=== PATIENT | male | born 1955 | race Caucasian/White ===

== ENCOUNTER 2019-01-17 08:00 | Day surgery (SDC) | payer BC ==
[2019-01-16 10:30] VITALS: BMI 26.7
[~2019-01-17 08:00] MED LIST: LACTATED RINGERS 1,000 ML IV SCH; LIDOCAINE 1% 20 ML VIAL (10MG/ML) FOR IV START INTRADERMA PRN
[2019-01-17 08:25] VITALS: TEMP 97.7
[2019-01-17 08:46] LABS: Glucose,Whole Blood 149 mg/dL (75-99)
[2019-01-17] MEDS ORDERED: LIDOCAINE 1% INJ 10MG/ML (20 ML MDV) ONE (08:46)
[2019-01-17] MEDS ORDERED: PROPOFOL 10 MG/ML 20 ML VIAL IV ONE (08:46)
--- NOTE | 2019-01-17 08:56 | P.PCN ---
Date of Procedure: 01/17/19 Procedure(s) Performed: BRIEF HISTORY: Patient is a 63-year-old, pleasant, white male, scheduled for an upper endoscopy as a part of evaluation of long-standing history of GERD of almost 25 years duration. His been on omeprazole 20 mg daily and doing well. Occasionally has heartburn and intermittent dysphagia to solids.. PROCEDURE PERFORMED: Esophagogastroduodenoscopy with biopsy. PREOPERATIVE DIAGNOSIS: Long-standing history of GERD/intermittent dysphagia to solids. IV sedation per anesthesia. PROCEDURE: After informed consent was obtained, the patient was brought into the endoscopy unit. IV sedation was administered by Anesthesia under continuous monitoring. Initially the Olympus GIF-140 video endoscope was inserted into the mouth. Esophagus intubated without any difficulty. It was gradually advanced into the stomach and duodenum and carefully examined. The bulb and the second part of the duodenum appeared normal. The scope at this time was withdrawn to the stomach, adequately insufflated with air, and upon careful examination, mucosa of the antrum, had mild gastritis and biopsies were done from this area. The body, cardia and the fundus appeared normal. The scope was then withdrawn into the esophagus. The GE junction was located at 39 cm from the incisors. Small sliding type hiatal hernia noted. The esophagus appeared normal. There were no erosions or ulcerations seen and the patient tolerated the procedure well. IMPRESSION: 1. Mild antral gastritis. 2. Small sliding type hiatal hernia with no evidence of esophagitis or Mederios's esophagus. RECOMMENDATIONS: The findings of this examination were discussed with the patient as well as his family. He was advised to follow with the biopsy result. He will continue with omeprazole 20 mg every other day and follow antireflux measures..
[2019-01-17 09:05] VITALS: RESP 18
[2019-01-17 09:17] VITALS: BP 121/74; PULSE 70
== END 2019-01-17 09:36 | disposition home or self-care (01) ==
LOC: ORWHC2ENDO 08:00
PROVIDERS: ATTEND Internal Medicine Gastroenterology
DX: K29.50 Unspecified chronic gastritis without bleeding (principal); K44.9 Diaphragmatic hernia without obstruction or gangrene; K21.9 Gastro-esophageal reflux disease without esophagitis; I10 Essential (primary) hypertension; E78.5 Hyperlipidemia, unspecified; G47.33 Obstructive sleep apnea (adult) (pediatric); E11.9 Type 2 diabetes mellitus without complications; M19.90 Unspecified osteoarthritis, unspecified site; Z88.8 Allergy status to other drugs, medicaments and biological substances; Z79.4 Long term (current) use of insulin; Z79.82 Long term (current) use of aspirin; Z79.899 Other long term (current) drug therapy; Z98.890 Other specified postprocedural states
CPT/HCPCS: 88305; 43239; J2001; J2704

== ENCOUNTER → 2020-02-19 | Outpatient (CLI) | payer BC ==
--- NOTE | 2020-02-19 14:42 | US ---
EXAMINATION TYPE: US abdomen complete DATE OF EXAM: 02/19/2020 COMPARISON: US 2016 CLINICAL HISTORY: 64-year-old male R10.12 LUQ ABD PAIN. Intermittent LUQ discomfort TECHNIQUE: Multiple sonographic images of the abdomen are obtained. FINDINGS: EXAM MEASUREMENTS: Liver Length: 18.5 cm Gallbladder Wall: 0.2 cm CBD: 0.4 cm Spleen: 14.5 cm Right Kidney: 10.2 x 4.4 x 4.6 cm Left Kidney: 11.0 x 5.4 x 5.7 cm Pancreas: visualized portions wnl, pancreatic tail limited by overlying midline bowel gas Liver: enlarged, mildly echogenic. No focal lesion seen. Gallbladder: wnl Evidence for sonographic Porras's sign: no CBD: visualized portions wnl, limited by overlying bowel gas Spleen: Mildly enlarged. Kidneys: No hydronephrosis. Upper IVC: wnl Abd Aorta: wnl IMPRESSION: 1. Mild hepatomegaly (18.5 cm). Suspect underlying mild steatosis. 2. Mild splenomegaly at 14.5 cm. Clinically correlate.
== END | disposition home or self-care (01) ==
LOC: RADUSWWP 08:19
PROVIDERS: ATTEND Internal Medicine
DX: R16.2 Hepatomegaly with splenomegaly, not elsewhere classified (principal)
CPT/HCPCS: 76700

== ENCOUNTER → 2021-01-09 | Outpatient (CLI) | payer MEDICARE ==
[2021-01-09 15:28] LABS: Basophils # (A) 0.02 X 10*3/uL (0.00-0.10); Basophils % (A) 0.4 %; Eosinophils # (A) 0.12 X 10*3/uL (0.04-0.35); Eosinophils % (A) 2.3 %; HGB 14.1 g/dL (13.0-17.0); Lymphocytes # (A) 1.44 X 10*3/uL (0.90-5.00); Lymphocytes % (A) 27.9 %; MCH 28.7 pg (27.0-32.0); MCV 89.6 fL (80.0-97.0); Mean Platelet Volume 11.1 fL (9.5-12.2); Monocytes # (A) 0.32 X 10*3/uL (0.20-1.00); Monocytes % (A) 6.2 %; Neutrophils # (A) 3.26 X 10*3/uL (1.80-7.70); Platelet Count 252 X 10*3/uL (140-440); RBC 4.91 X 10*6/uL (4.40-5.60); RDW 12.6 % (11.5-14.5); WBC 5.17 X 10*3/uL (4.50-10.00)
[2021-01-09 20:22] LABS: Ceruloplasmin 19.7 mg/dL (20.0-60.0)
[2021-01-09 21:00] LABS: % Iron Saturation 18.39 (15.00-50.00); ALT 16 U/L (10-49); AST 19 U/L (14-35); African American GFR (CKD) 91.9 (60.0-200.0); Albumin 4.4 g/dL (3.8-4.9); Albumin/Globulin Ratio 2.36 (1.60-3.17); Alkaline Phosphatase 79 U/L (41-126); Bilirubin, Conjugated <0.20 mg/dL (0.20-0.40); Blood Urea Nitrogen 14.2 mg/dL (9.0-27.0); Calcium 9.9 mg/dL (8.7-10.3); Carbon Dioxide 24.8 mmol/L (21.6-31.8); Chloride 103 mmol/L (96-109); Globulin 1.9 g/dL (1.6-3.3); Glucose 135 mg/dL (70-110); Iron 50 ug/dL (65-175); LDH 129 U/L (120-246); Magnesium 1.8 mg/dL (1.5-2.4); Non-African American GFR(CKD) 79.3 (60.0-200.0); Potassium 4.5 mmol/L (3.5-5.5); Sodium 140 mmol/L (135-145); Total Iron Binding Capacity 270 ug/dL (228-460); Total Protein 6.2 g/dL (6.2-8.2)
[2021-01-09 23:24] LABS: Alpha Fetoprotein, Tumor Mkr <1.82 ng/mL (0.00-7.90)
[2021-01-10 06:10] LABS: Microalbumin Creatinine Ratio <30 mg/g Creat (0-30)
== END | disposition home or self-care (01) ==
LOC: LABWHC1 10:42
PROVIDERS: ATTEND Internal Medicine
DX: E11.40 Type 2 diabetes mellitus with diabetic neuropathy, unspecified (principal); I10 Essential (primary) hypertension; E78.2 Mixed hyperlipidemia; R16.0 Hepatomegaly, not elsewhere classified
CPT/HCPCS: 36415; 80053; 82043; 82105; 82248; 82390; 82570; 82728; 83516; 83540; 83550; 83615; 83735; 84439; 84443; 85025; 86376

== ENCOUNTER → 2021-04-17 | Outpatient (CLI) | payer MEDICARE | END | disposition home or self-care (01) | LOC: LABWHC1 13:18 | PROVIDERS: ATTEND Nurse Practitioner Family | DX: R16.2 Hepatomegaly with splenomegaly, not elsewhere classified (principal) | CPT/HCPCS: 36415 ==

== ENCOUNTER → 2021-09-22 | Outpatient (CLI) | payer MEDICARE ==
[2021-09-22 14:33] LABS: Basophils # (A) 0.03 X 10*3/uL (0.00-0.10); Basophils % (A) 0.6 %; Eosinophils # (A) 0.16 X 10*3/uL (0.04-0.35); HCT 43.1 % (39.6-50.0); Immature Grans, Automated 0.2 %; Lymphocytes # (A) 1.66 X 10*3/uL (0.90-5.00); MCH 28.3 pg (27.0-32.0); MCHC 32.5 g/dL (32.0-37.0); MCV 87.2 fL (80.0-97.0); Mean Platelet Volume 10.2 fL (9.5-12.2); Monocytes # (A) 0.34 X 10*3/uL (0.20-1.00); Monocytes % (A) 6.4 %; NRBC Per 100 WBC 0 /100 WBCS (0.0-0.0); Neutrophils # (A) 3.15 X 10*3/uL (1.80-7.70); Neutrophils % (A) 58.8 %; Platelet Count 285 X 10*3/uL (140-440); RBC 4.94 X 10*6/uL (4.40-5.60); RDW 12.6 % (11.5-14.5); WBC 5.35 X 10*3/uL (4.50-10.00)
[2021-09-22 15:41] LABS: African American GFR (CKD) 91.1 (60.0-200.0); Albumin 4.3 g/dL (3.8-4.9); Albumin/Globulin Ratio 2.28 (1.60-3.17); Anion Gap 11.2 mmol/L (10.00-18.00); BUN/Creat Ratio 12.8 Ratio (12.00-20.00); Blood Urea Nitrogen 12.8 mg/dL (9.0-27.0); Calcium 9.4 mg/dL (8.7-10.3); Carbon Dioxide 26.4 mmol/L (20.0-27.5); Globulin 1.9 g/dL (1.6-3.3); Non-African American GFR(CKD) 78.6 (60.0-200.0); Potassium 4.6 mmol/L (3.5-5.5); Total Bilirubin 0.5 mg/dL (0.30-1.20); Total Protein 6.2 g/dL (6.2-8.2)
== END | disposition home or self-care (01) ==
LOC: LABWHC1 10:51
PROVIDERS: ATTEND Internal Medicine Gastroenterology
DX: R16.2 Hepatomegaly with splenomegaly, not elsewhere classified (principal)
CPT/HCPCS: 36415; 80053; 85025

== ENCOUNTER → 2022-03-16 | Outpatient (CLI) | payer MEDICARE ==
[2022-03-16 18:08] LABS: Basophils # (A) 0.03 X 10*3/uL (0.00-0.10); Basophils % (A) 0.6 %; Eosinophils # (A) 0.17 X 10*3/uL (0.04-0.35); Eosinophils % (A) 3.3 %; HCT 44.3 % (39.6-50.0); HGB 14.4 g/dL (13.0-17.0); Immature Grans, Automated 0.6 %; Lymphocytes # (A) 1.71 X 10*3/uL (0.90-5.00); Lymphocytes % (A) 32.7 %; MCH 28.3 pg (27.0-32.0); MCHC 32.5 g/dL (32.0-37.0); MCV 87.2 fL (80.0-97.0); Monocytes # (A) 0.28 X 10*3/uL (0.20-1.00); Monocytes % (A) 5.4 %; NRBC Per 100 WBC 0 /100 WBCS (0.0-0.0); Neutrophils # (A) 3.01 X 10*3/uL (1.80-7.70); Neutrophils % (A) 57.4 %; Platelet Count 232 X 10*3/uL (140-440); RBC 5.08 X 10*6/uL (4.40-5.60); RDW 13.2 % (11.5-14.5); WBC 5.23 X 10*3/uL (4.50-10.00)
[2022-03-16 18:51] LABS: African American GFR (CKD) 85.3 (60.0-200.0); Albumin 4.3 g/dL (3.8-4.9); Albumin/Globulin Ratio 2.49 (1.60-3.17); Anion Gap 8.4 mmol/L (10.00-18.00); BUN/Creat Ratio 11.71 Ratio (12.00-20.00); Blood Urea Nitrogen 12.3 mg/dL (9.0-27.0); Calcium 9.6 mg/dL (8.7-10.3); Carbon Dioxide 27.9 mmol/L (20.0-27.5); Globulin 1.7 g/dL (1.6-3.3); Non-African American GFR(CKD) 73.6 (60.0-200.0); Potassium 4.3 mmol/L (3.5-5.5); Total Bilirubin 0.3 mg/dL (0.30-1.20); Total Protein 6.1 g/dL (6.2-8.2)
== END | disposition home or self-care (01) ==
LOC: LABWHC1 11:07
PROVIDERS: ATTEND Nurse Practitioner Family
DX: R16.2 Hepatomegaly with splenomegaly, not elsewhere classified (principal)
CPT/HCPCS: 36415; 80053; 85025

== ENCOUNTER → 2022-07-08 | Outpatient (CLI) | payer MEDICARE ==
--- NOTE | 2022-07-11 09:14 | MR ---
EXAMINATION TYPE: MR knee LT wo con DATE OF EXAM: 07/08/2022 COMPARISON: Outside right knee x-ray June 23, 2022 HISTORY: Left knee pain and swelling TECHNIQUE: Multiplanar, multisequence images of the knee is performed without IV contrast. FINDINGS: MEDIAL MENISCUS: Globular increased signal medial meniscus. Abnormal signal central body extends into posterior horn where there is irregular course extending to articular surface LATERAL MENISCUS: Some horizontal increased signal lateral meniscus seen best on coronal images. CRUCIATE LIGAMENTS: The posterior cruciate ligament is intact and unremarkable. Anterior cruciate lig ament has a wavy fibers and increased signal, significant tearing is present. A few proximal fibers r emain intact. COLLATERAL LIGAMENTS: The medial collateral ligament and lateral collateral ligament complex are inta ct and unremarkable. EXTENSOR MECHANISM: Visualized quadriceps and patellar tendons are intact. EFFUSION: [id number] size suprapatellar joint effusion with some synovial thickening. POPLITEAL CYST: No popliteal/marie cyst. TRICOMPARTMENT SPACES: Moderate to severe narrowing patellofemoral compartment without significant sp urring.. Mild to moderate spurring medial and lateral tibiofemoral compartments. CARTILAGE: Chondromalacia patella with thinning of articular cartilage along the posterior patellar p ole. BONE MARROW SIGNAL: No focal abnormal marrow signal is appreciated. OTHER: No additional significant abnormality is appreciated. IMPRESSION: 1. 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 2. Significant partial tearing of the anterior cruciate ligament. 3. Small to moderate-sized suprapatellar joint effusion with suggestion of synovitis. Correlate clini isaura. 4. Full-thickness tear posterior horn medial meniscus extending into central body. 5. At least intrasubstance tear lateral meniscus.
== END | disposition home or self-care (01) ==
LOC: RADMRIMAIN 10:56
PROVIDERS: ATTEND Orthopaedic Surgery
DX: M17.12 Unilateral primary osteoarthritis, left knee (principal); M23.222 Derangement of posterior horn of medial meniscus due to old tear or injury, left knee; M23.352 Other meniscus derangements, posterior horn of lateral meniscus, left knee

== ENCOUNTER 2022-11-24 08:49 | Day surgery (SDC) | payer MEDICARE ==
[2022-11-24] MEDS ORDERED: LACTATED RINGERS 1,000 ML IV SCH (09:00)
[2022-11-24] MEDS ORDERED: LIDOCAINE 1% (10MG/ML) FOR IV START INTRADERMA PRN (09:00)
[2022-11-24 09:24] VITALS: TEMP 97.9
[2022-11-24] MEDS ORDERED: PROPOFOL 10 MG/ML 20 ML VIAL IV ONE (09:36)
--- NOTE | 2022-11-24 09:52 | P.PCN ---
Date of Procedure: 11/24/22 Procedure(s) Performed: BRIEF HISTORY: Patient is a 67-year-old pleasant white male scheduled for an elective colonoscopy as a part of screening for colon cancer. PROCEDURE PERFORMED: Colonoscopy with snare polypectomy. PREOPERATIVE DIAGNOSIS: Screening for colon cancer. IV sedation per Anesthesia. PROCEDURE: After informed consent was obtained, the patient, was brought into the endoscopy unit. IV sedation was administered by Anesthesia under continuous monitoring. Digital rectal examination was normal. Initially the Olympus CF-160 flexible video colonoscope was then inserted in the rectum, gradually advanced into the cecum without any difficulty. Careful examination was performed as the scope was gradually being withdrawn. Ileocecal valve and the appendiceal orifice were visualized and appeared normal. Prep was excellent. Mucosa of the cecum, 5 mm sessile polyp that was removed by snare polypectomy. Rest of the ascending colon, transverse colon, descending colon, sigmoid colon, and rectum appeared normal. Retroflexion was performed in the rectum and no lesions were seen. The patient tolerated the procedure well. IMPRESSION: 5 mm cecal polyp status post snare polypectomy Rest of the colon appeared normal RECOMMENDATIONS: Findings of this examination were discussed with the patient as well as his family.. He was advised to follow with the biopsy results. If the biopsy results adenoma he can have a repeat colonoscopy in 5 years.
[2022-11-24 10:05] LABS: Glucose,Whole Blood 114 mg/dL (70-110)
[2022-11-24 10:07] LABS: Glucose,Whole Blood 115 mg/dL (70-110)
[2022-11-24 10:19] VITALS: BP 134/70; PULSE 77; RESP 18
== END 2022-11-24 10:46 | disposition home or self-care (01) ==
LOC: ORWHC2ENDO 08:49
PROVIDERS: ATTEND Internal Medicine Gastroenterology
DX: Z12.11 Encounter for screening for malignant neoplasm of colon (principal); K51.40 Inflammatory polyps of colon without complications; I10 Essential (primary) hypertension; E11.9 Type 2 diabetes mellitus without complications; F12.90 Cannabis use, unspecified, uncomplicated; B18.9 Chronic viral hepatitis, unspecified; E78.5 Hyperlipidemia, unspecified; G47.33 Obstructive sleep apnea (adult) (pediatric); M19.90 Unspecified osteoarthritis, unspecified site; Z79.82 Long term (current) use of aspirin; Z79.84 Long term (current) use of oral hypoglycemic drugs; Z79.899 Other long term (current) drug therapy; Z88.8 Allergy status to other drugs, medicaments and biological substances
CPT/HCPCS: 88305; 45385; J2704